=== PATIENT | male | born 1960 ===

== ENCOUNTER 2023-09-30 01:52 | Inpatient (IN) | payer MEDICARE, MEDICAID, SELFPAY ==
[2023-09-30] VITALS (23 sets, daily range): BP systolic 102–135; BP diastolic 59–73; PULSE 62–94; RESP 10–18; TEMP 36.4–37.9; O2SAT 95–100; BMI 20.7
--- NOTE | 2023-09-30 00:52 | W.PC.ACHO ---
Registration Status: Primary Language: Preferred Language: Allergies No Known Allergies Allergy (Unverified 09/30/23 00:23) v v v v v v v v v Sending and/or Receiving Nurses: Please use comment section below to note any information pertinent to the patient hand-off not included above. Information / Comments: Pt arrived to [facility] via private vehicle after falling onto R hip. Pt ambulatory, however c/o pain and some weakness to R side. Pt has a hx of cerebral palsy and developmental delay. Xray showed R femoral neck fracture. Pt is A&O x3, lungs CTAB, HRR, has been NPO since midnight. VSS: Temp- 36.9, BP- 151/83, HR- 85, R- 18, SpO2- 95% on RA. Pt will be a direct admit to the floor via ambulance transportation from [facility]. Report received from: [facility] ED
[2023-09-30] MEDS: Normal Saline 1,000 ML 80 ML IV (03:02)
[2023-09-30] MEDS: ACETAMINOPHEN 1,000 MG/100 ML BTL 400 MG IVPB (03:03)
[2023-09-30] MEDS: Levothyroxine 50 MCG TAB PO (06:03)
[2023-09-30 06:47] LABS: HCT 39.7 % (40.0-50.0); HGB 13.4 g/dL (13.5-17.5); MCH 32.3 pg (27.0-33.0); MCHC 33.8 % (32.0-36.0); MCV 96 fL (80-95); MPV 10.4 fL (8.0-11.0); Platelet Count 169 10^3/uL (130-400); RBC 4.15 10^6/uL (4.36-5.78); RDW 12.7 % (11.8-14.1); RDW-SD 44.5 fL; WBC 10.24 10^3/uL (4.4-10.8)
[2023-09-30 07:11] LABS: Anion Gap 8.3 mmol/L (3-11); BUN 15 mg/dL (7-18); CO2 27.7 mmol/L (21.0-32.0); Calcium 8.4 mg/dL (8.5-10.1); Chloride 104 mmol/L (98-107); Estimated GFR 85.63 (mL/min/1.73m2); Glucose 99 mg/dL (74-106); Potassium 3.7 mmol/L (3.5-5.1); Sodium 140 mmol/L (136-145); TSH (W/Ref FT4) 2.59 uIU/mL (0.36-3.74)
--- NOTE | 2023-09-30 07:42 | W.ORTHOCONSU ---
History of Present Illness History of Present Illness Chief Complaint: Right Hip Pain Narrative: Philip is a 62-year-old male with cerebral palsy who was at home and was trying to go up stairs when he tripped and fell onto his right side. He was helped up by his caregiver, Shey, but she noticed that he seemed to be having more pain. He was able to place weight onto the right leg although he seemed to be favoring it and was more unsteady than he was prior to the fall. Therefore, EMS was called he was taken to [facility]. There he was diagnosed with a transcervical femoral neck fracture. CT scan was performed to the hospital which showed a primary transverse fracture with a vertical extension anteriorly. There is no orthopedic coverage. I was called in consultation for [facility] where I recommended surgery for this fracture and accept him in transfer. Philip is largely nonverbal. He uses some hand gestures for communication but for the most part the history was obtained through his caregiver, Shey, who is present in the room and through his brother, Edu, who I called. Prior to this fall he had been having some issues with gait although this has been a longstanding problem, slightly getting worse. He has been reluctant to do exercises and physical therapy has been in the home which has been helping out. He also is been having some generalized and slow weight loss. This has been evaluated at this point he is just chopping the food in small pieces and is otherwise been doing well although still with some stable and slow weight loss. He does not like to do exercise and does not walk for exercise but he does work at [employer] and enjoys doing those activities. He is only identified the right hip as a point of pain. There is no head trauma. There is no loss of consciousness. Consults Consult date: 09/30/23 Consult Reason Right Hip Fracture Assessment and Plan Assessment and plan (1) Fracture of femoral neck, right, closed: Status: Acute Assessment and plan: Philip is a 62-year-old male with cerebral palsy and development delay who suffered a fracture to his right hip. This is a mechanical fall. This is a mildly impacted fracture with a vertical spike of the anterior femoral neck. This is a very challenging situation. Given his cerebral palsy and his neuromuscular disorder and frequent falls and some ataxia, there is some difficulty in knowing what the best next step would be. Given the underlying medical history I would err towards the side of fixation rather than replacement. I discussed the case with Shey's caregiver and his brother, Edu. Both situations have different risk. Fixation with screws would be a quicker procedure with less blood loss and less anesthetic risk. It may take longer to obtain pain-free ambulation but he would be able to weight-bear right away. The benefit of the hip replacement would be general less pain with weightbearing right from the beginning. However, with hip replacement there is added risk of dislocation which would be not insignificant for him, particular with his neuromuscular disorder and seizure history and history of falls. Nevertheless, fixation with screws does carry a 25% rate or so of failure either from osteonecrosis, blood flow being disrupted from the fracture, or hardware failure leading to malunion or nonunion. Occasionally hardware prominence may be an issue as well. After discussing this with Shey and Edu they both agree that fixation seems to be the best option. I reviewed screw fixation of the right hip fracture with Edu over the phone. I discussed the technical details. I discussed the risk to include bleeding, infection, pain, stiffness, damage to nerves and vessels, damage to muscles and tendons, malunion, nonunion, hardware prominence, hardware failure, osteonecrosis, blood clot, need for repeat procedures. Despite these risk, he elects to proceed. (2) Seizure disorder: Status: Chronic Assessment and plan: Stable without recent seizure. Continue home medications. (3) Cerebral palsy: Status: Acute Assessment and plan: Actively seeing physical therapy. Review of Systems All systems reviewed & are unremarkable except as noted in HPI and below PFSH All Active Problems (Updated 09/30/23 @ 07:58 by James Murrell MD) Cerebral palsy (Acute) Seizure disorder (Chronic) Fracture of femoral neck, right, closed (Acute) Social History Smoking/Tobacco Use Status: Never Smoking risk assessment performed?: Yes Alcohol Intake: never Substance use type: does not use Housing: other Exam Const General: cooperative, comfortable and no acute distress HENMT Head: normal to inspection, normocephalic and atraumatic Teeth and gingiva: abnormal dentition Neck Neck: normal visual inspection and full ROM Resp Effort & Inspection: normal respiratory effort Auscultation: clear to auscultation bilaterally Cardio Rate: regular rate Rhythm: regular rhythm Extrem Other: Right lower extremity is position similar to the left side. No significant shortening or external rotation appreciated. There is notable equinus posturing of the bilateral lower extremities. He has active clonus bilaterally. Passively I can bring his ankle to neutral. Has no pain with palpation about the distal thigh, knee, leg, ankle, or foot. He is otherwise unable to participate with neuromuscular testing. Palpable DP and PT pulses. Results Last Vital Signs Temp 37.4 C 09/30/23 06:20 Pulse 85 09/30/23 06:20 Resp 14 09/30/23 06:20 BP 105/60 09/30/23 06:20 Pulse Ox 97 09/30/23 06:20 Labs 09/30/23 06:10 09/30/23 06:10 Labs: Laboratory Results - last 24 hr 09/30/23 06:10 WBC 10.24 RBC 4.15 L Hgb 13.4 L Hct 39.7 L MCV 96 H MCH 32.3 MCHC 33.8 RDW 12.7 Plt Count 169 MPV 10.4 Sodium 140 Potassium 3.7 Chloride 104 Carbon Dioxide 27.7 Anion Gap 8.3 BUN 15 Creatinine 1.0 Est GFR (CKD-EPI 2020) 85.63 Glucose 99 Calcium 8.4 L TSH 2.59 Imaging Imaging Studies: X-ray of the right hip and pelvis from [facility] was reviewed. This shows what appears to be transcervical femoral neck fracture without any displacement. CT scan of the right hip from [facility] was also reviewed. This shows the aforementioned fracture. Interestingly, there is some impaction and maybe some mild posterior angulation of a few degrees at most. There is a vertical fragment going off the anterior femoral neck which is also nondisplaced.
[2023-09-30] MEDS: Cholecalciferol (Vitamin D3) 1,000 UNIT TAB 1000 UNITS PO (07:52)
--- NOTE | 2023-09-30 08:04 | ANES.PREOP_ITS ---
General Info Date of Service Date Performed: 09/30/23 Height: 5 ft 5 in Weight: 56.518 kg Body Mass Index (BMI): 20.7 Surgical Procedure: Operation Date: 09/30/23 08:30 Proposed Procedure Side Surgeon p cannulated hip screws Right James Murrell MD Meds Allergies and Home Medications Allergies Allergy/AdvReac Type Severity Reaction Status Date / Time No Known Allergies Allergy Unverified 09/30/23 00:23 Home Medication ?Medication ?Instructions ?Recorded cholecalciferol (vitamin D3) 25 25 mcg PO DAILY 09/30/23 mcg (1,000 unit) capsule docusate sodium 100 mg capsule 100 mg PO DAILY PRN constipation 09/30/23 ipratropium bromide 42 mcg (0.06 2 spray intranasal TID 09/30/23 %) nasal spray levothyroxine 50 mcg tablet 50 mcg PO DAILY 09/30/23 minocycline 50 mg capsule 50 mg PO DAILY 09/30/23 phenytoin sodium extended 100 mg 100 mg PO TID 09/30/23 capsule primidone 250 mg tablet 250 mg PO BID 09/30/23 triamcinolone acetonide 0.025 % 1 applic topical BID 09/30/23 topical cream Current Visit Medications: Current Medications Generic Name Dose Route Start Last Admin Trade Name Freq PRN Reason Stop Dose Admin Cholecalciferol 1,000 units 09/30/23 08:30 09/30/23 07:52 Cholecalciferol (Vitamin D3) 1,000 Unit Tab PO 1,000 units DAILY TRACE Administration Docusate Sodium 100 mg 09/30/23 01:55 Docusate Sodium 100 Mg Cap PO DAILY PRN constipation Hydromorphone HCl 0.5 mg 09/30/23 01:52 Hydromorphone 2 Mg/Ml Syr IVP Q2H PRN PRN Acetaminophen 1,000 mg in 100 mls @ 400 mls/hr 09/30/23 03:00 09/30/23 03:30 Ofirmev IVPB Infused Q8H TRACE Infusion Sodium Chloride 1,000 mls @ 80 mls/hr 09/30/23 03:00 09/30/23 03:02 Saline 1000ml Bag IV 80 mls/hr INFUSION TRACE Administration IV Miscellaneous Supplies 1 each 09/30/23 02:00 Iv Access IV DIRECTED TRACE Ketorolac Tromethamine 15 mg 09/30/23 01:56 Ketorolac 15 Mg/Ml Vial IVP 10/05/23 01:55 Q6H PRN PRN Levothyroxine Sodium 50 mcg 09/30/23 06:00 09/30/23 06:03 Levothyroxine 50 Mcg Tab PO 50 mcg 0600 TRACE Administration Non-Formulary Medication 50 mg 09/30/23 08:30 Minocycline PO DAILY TRACE Ondansetron HCl 4 mg 09/30/23 01:52 Ondansetron 4 Mg/2 Ml Vial IVP Q6H PRN PRN Nausea Phenytoin Sodium 100 mg 09/30/23 08:30 09/30/23 07:52 Phenytoin-Extended 100 Mg Cap PO 100 mg TID TRACE Administration Primidone 250 mg 09/30/23 08:30 Primidone 250 Mg Tab PO BID TRACE Sodium Chloride 0 ml 09/30/23 01:58 Normal Saline Flush 10 Ml Syr IVP PRN PRN Sodium Chloride 0 ml 09/30/23 08:30 Normal Saline Flush 10 Ml Syr IVP BID TRACE Sodium Chloride 0 ml 09/30/23 01:58 Normal Saline 10 Ml Vial IJ DIRECTED PRN Tramadol HCl 50 mg 09/30/23 01:52 Tramadol 50 Mg Tab PO Q4H PRN PRN Pain PFSH Active Problems Active Problems: Problem Status Onset Code Cerebral palsy Acute G80.9 Seizure disorder Chronic G40.909 Fracture of femoral neck, right, closed Acute S72.001A Tobacco Smoking/Tobacco Use Status: Never Alcohol Alcohol Intake: never Substance Use Substance use type: does not use Vital Signs and Lab Results Vital Signs Most Recent Vital Signs in EMR: Most Recent Vital Signs Temp Pulse Resp BP Pulse Ox 37 C 88 14 115/65 96 09/30/23 07:46 09/30/23 07:46 09/30/23 07:46 09/30/23 07:46 09/30/23 07:46 Lab Results 09/30/23 06:10 09/30/23 06:10 Blood Type / Crossmatch: 2 No Data to Display Complete Blood Count: 2 White Blood Count 10.24 10^3/uL (4.4-10.8) 09/30/23 06:10 Red Blood Count 4.15 10^6/uL (4.36-5.78) L 09/30/23 06:10 Hemoglobin 13.4 g/dL (13.5-17.5) L 09/30/23 06:10 Hematocrit 39.7 % (40.0-50.0) L 09/30/23 06:10 Platelet Count 169 10^3/uL (130-400) 09/30/23 06:10 Complete Metabolic Panel: 2 Sodium 140 mmol/L (136-145) 09/30/23 06:10 Potassium 3.7 mmol/L (3.5-5.1) 09/30/23 06:10 Chloride 104 mmol/L (98-107) 09/30/23 06:10 Carbon Dioxide 27.7 mmol/L (21.0-32.0) 09/30/23 06:10 BUN 15 mg/dL (7-18) 09/30/23 06:10 Creatinine 1.0 mg/dL (0.70-1.30) 09/30/23 06:10 Est GFR (CKD-EPI 2020) 85.63 (mL/min/1.73m2) 09/30/23 06:10 Calcium 8.4 mg/dL (8.5-10.1) L 09/30/23 06:10 Glucose 99 mg/dL (74-106) 09/30/23 06:10 Liver Function Panel: 2 No Data to Display Coagulation Panel: 2 No Data to Display Cardiac Panel: 2 No Data to Display Arterial Blood Gas: 2 No Data to Display Venous Blood Gas: 2 No Data to Display Pancreas Panel: 2 No Data to Display Thyroid Panel: 2 Thyroid Stimulating Hormone (TSH) 2.59 uIU/mL (0.36-3.74) 09/29 06:10 Infectious Disease: 2 No Data to Display Blood Cultures: 2 No Data to Display Toxicology Panel: 2 No Data to Display Anesthesia Assessment and Plan Anesthesia History Personal History: No History of Anesthesia Complications Family History: No Family History of Anesthesia Complications Exercise Tolerance Exercise Tolerance: Metabolic Equivalents>4 Pertinent Negatives Pertinent Negatives: No Symptoms of GERD Cardiac & Pulmonary Exam Cardiac Exam: Normal S1/S2 Heart Sounds Pulmonary Exam: Clear Bilateral Breath Sounds Implantable Cardiac Device Does patient have a Pacemaker or an ICD?: No Airway Exam Known Difficult Airway: No Mallampati Class: 3 Mouth Opening: Narrow (< 3cm) Thyromental Distance: Less than 3 cm Neck Range of Motion: Limited ROM Neck Circumference: Normal Teeth Condition: Generalized Poor Dentition and Dental Caries ASA Classification ASA Score: ASA 3 Emergency Case?: No NPO Status NPO Status: NPO Clears >2 hours, Solids >8 hours Anesthesia Plan Resuscitation Status: Full Code Anesthesia Technique: General Anesthesia Airway Planned: Endotracheal Tube Monitors Used: Standard Monitors Preoperative Comments:: Per brother last seizure at 26. Stable dose Phenytoin. Caregiver witnessed fall, not a seizure.
--- NOTE | 2023-09-30 08:26 | INITIAL_ITS ---
Date of service: 09/30/23 Time of Service: 08:26 Care Management Initial Assmt Initial Assessment Reason for Hospitalization: R femoral neck fracture Functional Status/Living Situation Patient Presentation: Jermaine was sitting up in bed when CM met with him. He was smiling and answered simple questions with yes or no responses but did not initiate any conversation. Philip was transferred to [facility] from [facility] with a fractured femur. He had surgical repair of his hip this morning and seems to be doing well. He denied pain at the time of CM visit. Philip has cerebral palsy and has a caregiver Shey. He also has a brother Edu who is his guardian. When Edu came to visit this afternoon CM met with him and Philip. He was able to provide more details about Philip's current living conditions and his needs, services and functioning. Philip is fairly independent with his personal care. He bathes, dresses and feeds himself. He ambulates independently and does not require the use of a cane, walker or wheelchair. Philip spends Sunday through Sunday at his caregiver's home and s at home with Edu. He has received home health PT services in the past but not currently. 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, Groceries, Laundry and Transportation Medications Medication Management: No Issues/Barriers identified Advance Directives Advance Directives: Do you have an Advance Directive: AD On File at [facility]: N 09/30/23 08:14 Date Asked 09/30/23 09/30/23 08:14 AD Date Reviewed COLST On File at [facility] COLST Date Scanned Code Status Resuscitation Status Full Code Portal Pt does not currently have a portal and education provided: No Insurance Coverage/Financial Issues Insurance: Medicare Medicaid Care Team Visit Care Team Role Provider Type Unknown Unknown Primary Care Provider STAFF PHYSICIAN James Murrell MD Admit Provider [facility] STAFF PHYSICIAN Attending Provider Discharge Potential Discharge Needs: PCP F/U Appt and Surgical F/U Appt Anticipated Barriers to Discharge: Medical Status Patient/Family Education Needs: Review discharge instructions, discuss Ask Me Three Transportation: Private vehicle Plan: Anticipate Philip will be discharged home, possibly with new home health services, when medically ready. He will follow up with his surgeon, PCP and plan of care a nd transport with his caregiver. CM will follow and continue to assess for discharge needs. SDOH(Care Management) Screening Will the Patient Participate in the Screening?: Unable to obtain PFSH All Active Problems Cerebral palsy (Acute) Fracture of femoral neck, right, closed (Acute) Medical History Seizure disorder Social History Smoking/Tobacco Use Status: Never Smoking risk assessment performed?: Yes Alcohol Intake: never Substance use type: does not use Housing: other
[2023-09-30] MEDS: Lactated Ringers 1,000 ML 30 ML IV (08:40)
[2023-09-30] MEDS: ceFAZolin 2 GM/50 ML BAG 50 GM (08:49)
--- NOTE | 2023-09-30 09:26 | DI.RAD_ITS ---
Exam(s) XR HIP RT IN OR EXAM: XR HIP RT IN OR CLINICAL HISTORY: Right hip FX- per [place]. TECHNIQUE: 2D and realtime digital imaging was performed. COMPARISON: No exams were available for comparison FINDINGS: Hard copy images show placement of 3 partially threaded screws in the proximal femur for fracture fix ation. Please see procedure note for details. Fluoro time: 52.3seconds RADIATION DOSE DELIVERED: Kar=4.2 mGy
--- NOTE | 2023-09-30 09:59 | W.PM.OP ---
Date of service: 09/30/23 Time of Service: 09:00 Operative Note Operative Note DATE OF PROCEDURE: 09/30/23 PRE-OP DIAGNOSIS: Right Femoral Neck Femur Fracture POST-OP DIAGNOSIS: same PROCEDURE: Cannulated Screw Fixation of Proximal Femur Fracture - RIGHT SURGEON: James Murrell ANESTHESIA TYPE: General LMA/ETT Refer to Anesthesia Record ESTIMATED BLOOD LOSS: 10 PATHOLOGY: none sent COMPLICATIONS: None Patient was transported to: PACU Patient's condition: stable Implants: Synthes 7.3mm cannulated screws (x3) Indications: Philip is a 62 year old male who presented to the Emergency Department at [facility] after a fall. X-rays confirmed the diagnosis of a femoral neck fracture of the proximal femur without significant displacement or comminution. I reviewed the possible treatment options and given the fracture of the femur which was nondisplaced and his underlying seizure and neuromuscular disorder, I recommended operative fixation. I discussed the technical details of the surgery with his caregiver and his brother, power of trademark attorney. I reviewed the risks such as bleeding, infection, pain, stiffness, malunion, nonunion, hardware prominence, hardware failure, malrotation, avascular necrosis, blood clot. Despite these risks, his brother and power of trademark attorney agreed to proceed. Findings: A femoral neck fracture was confirmed to be stable and thus secured with 3 7.3mm cannulated screws in a percutaneous fashion. Procedure Description: Philip was taken back to the operating room. A general anesthetic was administered. The feet were wrapped with cast padding and Coban and then placed into the boot liners and then into the boots. Care was taken to protect the skin and make sure the heels were fully down and the boots were stable. The patient was then positioned onto the HANA table. Both legs were held in a neutral position. SCDs were applied. The patient was then slid down onto a perineal post. The arm of the operative side was then placed across the chest and secured. The nonoperative leg was scissored. A gentle reduction was then performed with traction and internal rotation and gentle external manipulation. Prophylactic antibiotics in the form of Cefazolin were administered. The right leg was then prepped with Chloraprep and draped in a standard fashion with shower-curtain type drape with Iodine impregnated skin protection. A timeout to confirm correct identity, side and site, procedure, allergies, anesthesia, and medical concerns was performed. Using fluoroscopy, the starting point was marked over the lateral hip. The first pin was placed into a posterior?inferior position to form an inverted triangle. This was made sure to start proximal of the lesser trochanter. It was advanced into the femoral head and confirmed to be in a good position both on the AP and the lateral. 2 additional pins from the 7.3 mm cannulated system replaced, both superior, 1 anterior 1 posterior. These were once again confirmed to be in good position on fluoroscopy. They were advanced to the appropriate position in the path of the pin was cut with a knife. The pin length was measured and the lateral cortex was opened with a drill. The appropriate sized screws were then placed loosely. Once all 3 were in position I then proceeded circumferentially tightening each screw by 1 or 2 turns into each were tightened. These had excellent fixation. There is no screw penetration in the head and no penetration within the lateral cortex. AP and lateral x-rays were once again obtained to confirm appropriate positioning throughout both planes and without displacement nor fracture propagation. The wounds were thoroughly irrigated. A cocktail consisting of 123mg of Ropivacaine, 0.25mg of Epinephrine, 0.04mg of Clonidine, and 15mg of Ketorolac, diluted to 50cc was injected throughout the wounds both deep and superficially. The skin was closed with a running subcuticular Monocryl reinforced with skin glue. The wounds were dressed with a Mepilex silver dressing. At the end of the case, all counts were correct. Philip tolerated the procedure well without known complication and was taken to the PACU for recovery. Physical therapy will start post-operatively, weigh-bearing as tolerated with assistive devices. Anticoagulation will start within 12-24 hours. 3 doses of post-operative antibitiocs for prophylaxis will be administered.
--- NOTE | 2023-09-30 11:45 | PT.INIE ---
Date of service: 09/30/23 Time of Service: 11:20 PT Notes Visit Reasons: R Femoral Neck Fracture Inpatient Physical Therapy Evaluation Date: September 30, 2023 Referring Doctor: James Murrell PT Orders: PT CONSULT: s/p perc screw fixation of R FNF WBAT Precautions: Standard, WBAT R LE Patient Profile/Admitting Diagnosis: Philip is a 62-year-old male with cerebral palsy who was at home and was trying to go up stairs when he tripped and fell onto his right side. He was helped up by his caregiver, Shey, but she noticed that he seemed to be having more pain. He was able to place weight onto the right leg although he seemed to be favoring it and was more unsteady than he was prior to the fall. Brought to the ED. s/p perc screw fixation this morning via Dr Murrell PMHX: (Updated 09/30/23 @ 07:58 by James Murrell MD) Cerebral palsy (Acute) Seizure disorder (Chronic) Fracture of femoral neck, right, closed (Acute) Social History/Home Situation: Philip lives with his caregiver Shey currently during the week and on weekends stays with his brother Tan. Tan was present during PT consult this morning and provided all subjective info for Philip is nonverbal. Current Functional Limitations: decreased activity tolerance, Tan notes his brother would prefer to just sit in his chair and watch TV. Does complete daily exercises that were provided via Home Health due to problems with his gait. Tan states his brother is a toe walker. Does not utilize an assistive device however does not walk without either him or his caregiver Shey. Subjective: Philip was agreeable to PT consult this morning with head nod and smile. Brother aTn in attendance for evaluation. Notes that Philip walks with him and his caregiver however has never utilized an assistive device before. Objective: General Observation: IV access Mental Status: pleasant, nonverbal, will head nod upon agree, and follows command Pain: No complaints of pain Vital Signs: monitored via nursing ROM: Right Upper Extremity: Demonstrates WFL AROM R UE Left Upper Extremity: Demonstrates WFL AROM L UE Right Lower Extremity: hip flexion 90 degrees in seated position bedside, abduction tolerated 20 degrees, knee flexion 90 degrees, lacking 10 degrees of knee extension, lacking 5 degrees of DF Left Lower Extremity: hip flexion 90 degrees, abduction 20 degrees, knee flexion 90 degrees, knee extension lacking 20 degrees, DF lacking 15 degrees Strength: Right Upper Extremity: Demonstrates good gravity resisted strength R UE Left Upper Extremity: Demonstrates good gravity resisted strength L UE Right Lower Extremity: hip flexion 3/5, knee extension 4/5, knee flexion 4-/5, DF 4/5 Left Lower Extremity: hip flexion 4/5, knee extension 4/5, knee flexion 4/5, DF 3/5 Bed Mobility/Transfers: Supine-sit: SBA Sit-supine: SBA Sit-stand: SBA with FWW instructing in proper hand placement Stand-sit: SBA with cueing for proper hand placement Gait: WBAT R LE, able to take 5 steps with FWW, minAx1 Balance: Static Sitting: Good Dynamic Sitting: Good Static Standing: Fair Dynamic Standing: Poor Special Tests: Mobility Limitations Standardized Measure [facility] AM-PAC 6 clicks Basic Mobility Inpatient Short Form: Raw Score: 19 CMS Score: 42% Informed Consent/Education: Patient instructed in purpose of PT consult and plan of care. Assessment: Patient is a 62 year old male referred to physical therapy services with the diagnosis of femoral neck fracture s/p perc screw fixation of the R FNF s/p fall. Patient presents with clinical signs and symptoms consistent with diagnosis along with CP, as demonstrated by the following impairment level findings: impaired joint mobility, impaired muscle performance, impaired motor function with altered gait and balance. Impairments are contributing to the following functional limitations: decreased activity tolerance, WBAT R LE, decreased balance, altered gait- requiring use of assistive device, decreased transfers Patient is assessed as a Low 77836 complexity based on the following: History: As above Examination: As above Presentation: Stable Decision Making: Low Goals: Goals X1 week 1. Supine-Sit independent 2. Sit-Supine independent 3. Sit-Stand SBA 4. Stand-Sit SBA 5. Bed-Chair SBA with FWW 6. Chair-Bed SBA with FWW 7. Gait SBA with FWW 8. Stairs up/down CGA with railing 9. Independent with home exercise program Plan of Care/Treatment Plan: 1-2x/day, 7 days/week x 1 week. Plan of care has been reviewed with the FAMILY ENGAGEMENT SPECIALIST providing the service under Physical Therapy direction. Initiate Physical Therapy intervention for strengthening, bed mobility, transfers, gait, stairs, balance training, use of assistive device. DISCHARGE RECOMMENDATIONS: Home with Home Health PT/OT in care of brother and caregiver Shey TREATMENT CODE/TIME: 64848 IE 25 minutes 11:20 am [facility] Please sign an return this page within 30 days if you agree with the above POC. Thank you! Physician Signature Date [facility] Disclaimer: This note was created using Ready voice recognition software. It was reviewed for major content. However, there may be multiple small discrepancies and errors due to the voice recognition aspects of the software.
--- NOTE | 2023-09-30 12:13 | W.ANESPOSTOP ---
Postoperative Evaluation Date, Time and Location Date Performed: 09/30/23 Time Performed: 10:02 Patient Location: PACU Vital Signs Most Recent Imported Vital Signs: Most Recent Vital Signs Temp Pulse Resp BP Pulse Ox 37.5 C 76 14 119/71 99 09/30/23 11:24 09/30/23 11:24 09/30/23 11:24 09/30/23 11:24 09/30/23 11:24 Pain Score Most Recent Pain Score: Most Recent Pain Score Pain Level 0 09/30/23 10:13 Assessment Mental Status: Awake (Alert & Oriented to Patient Baseline) Airway and Respiratory Function: Patent airway with normal (patient baseline) respiratory exam Cardiovascular Function: Hemodynamically Stable Hydration Status: Adequately Hydrated Nausea & Vomiting: No Nausea or Vomiting Pain: Pt. Denies Any Pain Peripheral Nerve Block: Patient did not receive a nerve block
[2023-09-30] MEDS: ceFAZolin 1 GM/50 ML BAG IVPB ×2 (12:44→21:04)
[2023-09-30] MEDS: Normal Saline Flush 10 ML SYR IVP ×2 (12:46→21:13)
[2023-09-30] MEDS: Acetaminophen 325 MG TAB 650 MG PO ×2 (14:17→19:28)
[2023-09-30] MEDS: Primidone 250 MG TAB PO (19:29)
[2023-09-30] MEDS: Aspirin E.C. 81 MG TABEC PO (19:29)
[2023-10-01 04:34] VITALS: BP 115/75; PULSE 84; RESP 15; TEMP 37.3; O2SAT 99
[2023-10-01] MEDS: ceFAZolin 1 GM/50 ML BAG IVPB (04:54)
[2023-10-01] MEDS: Levothyroxine 50 MCG TAB PO (04:55)
[2023-10-01 07:37] VITALS: BP 126/67; PULSE 85; RESP 18; TEMP 37.5; O2SAT 97
[2023-10-01] MEDS: Primidone 250 MG TAB PO ×2 (07:45→20:14)
[2023-10-01] MEDS: Aspirin E.C. 81 MG TABEC PO ×2 (07:45→20:14)
[2023-10-01] MEDS: Normal Saline Flush 10 ML SYR IVP ×2 (07:46→20:15)
[2023-10-01] MEDS: Cholecalciferol (Vitamin D3) 1,000 UNIT TAB 1000 UNITS PO (07:46)
[2023-10-01] MEDS: Acetaminophen 325 MG TAB 650 MG PO ×3 (07:46→20:14)
--- NOTE | 2023-10-01 08:40 | PDOC.CMPRO ---
Date of service: 10/01/23 Time of Service: 08:40 Care Management Progress Note Progress Note Text Progress Note Text: Jermaine was sitting in a chair visiting with his Guardian/brother Edu and homecare provider Shey when CM met with him. He appears happy and is smiling. Recommendation is home with [facility] PT, possibly tomorrow per Dr. Murrell. Patient may benefit from an OT referral, for a home safety assessment as Shey feels he may need handrails. Discharge Potential Discharge Needs: PT Evaluation (New PT ) Anticipated Barriers to Discharge: None Identified Patient/Family Education Needs: Review discharge instructions, discuss Ask Me Three Transportation: Private vehicle Plan: Anticipate, Philip will be discharged home, possibly with [facility] PT/OT,, when medically ready. He will follow up with his Ortho, PCP and plan of care and transport with his caregiver. CM will follow and continue to assess for discharge needs. CM reviewed with Shey and Edu. SDOH(Care Management) Screening Will the Patient Participate in the Screening?: Unable to obtain Anticipated HH Services Anticipated HH Services at Discharge [facility] ([facility] PT/OT) Services Needed.
--- NOTE | 2023-10-01 11:01 | PTTR_ITS ---
PT Notes Visit Reasons: R Femoral Neck Fracture Inpatient Physical Therapy Treatment Note [facility] Date: October 01, 2023 PRECAUTIONS: Weightbearing as tolerated right lower extremity SUBJECTIVE: [] OBJECTIVE: Patient presented supine in bed. Patient agreeable to participate ? PAIN: Denies VITALS: ?Monitored by nursing Therapeutic Activities (56725x0): Direct one-on-one instruction in dynamic activities to improve functional performance. ? BED MOBILITY/TRANSFERS? Rolling L/R: Independent Supine-sit: SBA? Sit-supine: SBA with increased time for lower extremities into bed ? Sit-stand: SBA with cues for hand placement? Stand-sit: CGA with cues for hand placement? Bed-Chair: CGA? Chair-bed: CGA Provided skilled cues and instruction on performance and technique throughout. Gait Training (05511 x 2): Direct one-on-one instruction and skilled instruction in: [X] employing an assistive device [X] modified weight-bearing status [x] movement sequencing [X] turning and movement with proper form to lift and turn front wheel walker without moving feet at the same time [X] Provided verbal cues for equipment management and technique in small spaces [] Provided instruction in gait pattern [] Patient education regarding pacing and breathing techniques to maximize activity tolerance? GAIT? Assistive Device: FWW ? Weight bearing:WBAT RLE Assist: CGA cues to go slow ? Distance:? 122 feet x1, 100x1 ? x 2 trials for a total of 444 feet? Deviation: ataxic on initiating steps ? STAIRS:CGA 2 steps with B rails step to pattern cues for sequencing? ?x 2 trials ? Therapeutic Exercises (11724z7): Direct one-on-one instruction in therapeutic e xercises to develop strength, endurance, range of motion and flexibility. ? Exercises 10 reps ? Supine right lower extremity: Heel slides, quad sets,glutes sets, active assistive hip abduction Seated RLE: Marching, LAQ ? Provided skilled instruction in proper exercise performance Provided skilled manual cues to facilitate proper muscle recruitment and/or form: [] ASSESSMENT:?Pt patient demonstrates impulsivity and and easily distractible during functional mobility in hallway. He utilizes gestures and is able to answer yes/no questions appropriately. The FWW provides upper extremity support to improve posture. During second session caregiver Shey, present and reports he is walking more upright than prior to injury as patient did not use a device at home. Philip demonstrates intermittent left lower extremity ataxic crossover step with internal rotation requiring contact-guard assist to steady balance. Recommending front wheel walker for discharge to home. Shey verbalized ability to provide current level of assistance needed if Philip was to return to her home however Shey reports the patient will be going to his brother's home for a few days prior to returning to her home. At end of session the patient's brother Tan entered room his questions were answered regarding the patient's current functional status and need for front wheel walker and recommendation for safety belt/gait belt at discharge to allow Tan to have something to hold onto when walking with patient. PLAN: Continued strengthening BLE , balance facilitation to improve transfers ambulation and stairs TREATMENT CODE/TIME: 1st session [id number], [id number] (33 minutes) 2nd session: 03667; [id number] (30 min) DISCHARGE RECOMMENDATION: Home with brother and caregiver and PT; FWW and gait/safety belt.
[2023-10-01 11:17] VITALS: BP 127/77; PULSE 87; RESP 18; TEMP 37.2; O2SAT 99
--- NOTE | 2023-10-01 13:02 | PGE_ITS ---
Date of Service Date of service: 10/01/23 Time of Service: 12:15 Assessment and Plan Assessment and plan (1) Fracture of femoral neck, right, closed: Status: Acute Assessment and plan: Philip is a 62-year-old male with cerebral palsy and developmental delays and seizure disorder who is status post percutaneous screw fixation of a right femoral neck fracture. He seems to be doing well. He is been able to mobilize physical therapy with nursing. I do worry about his fall risk given that he has balance issues at baseline. Nevertheless, he is making good progress and I thin k he should be ready for discharge to home tomorrow with home health services. Continue with supportive care. Subjective Subjective Interval history since last seen: Philip is doing well. He is nonverbal but does smile and nod with questions. He denies any pain. He was able to get up with nursing and with physical therapy. He was minimal assist x 1. No other acute issues identified. Vital signs are stable. Exam Narrative Exam Narrative: Sitting up in the chair. No acute distress. Evaluation of the right lower extremity shows some mild swelling. Dressings clean dry and intact. No ec chymosis. No significant pain with hip internal and external rotation. Objective Last Vital Signs Temp 37.2 C 10/01/23 11:17 Pulse 87 10/01/23 11:17 Resp 18 10/01/23 11:17 BP 127/77 10/01/23 11:17 Pulse Ox 99 10/01/23 11:17 Time Spent with Patient Time Spent with Patient: 25-34 minutes Time was spent: preparing to see the patient(eg.review tests), obtaining and/or reviewing separately otained hiistory and counseling the patient
[2023-10-01 14:47] VITALS: BP 137/75; PULSE 87; RESP 18; TEMP 37.1; O2SAT 100
[2023-10-01 19:14] VITALS: BP 137/74; PULSE 84; RESP 18; TEMP 36.9; O2SAT 100
[2023-10-01 23:36] VITALS: BP 116/86; PULSE 77; RESP 19; TEMP 37; O2SAT 99
[2023-10-02 03:31] VITALS: BP 116/67; PULSE 80; RESP 18; TEMP 37; O2SAT 99
[2023-10-02] MEDS: Levothyroxine 50 MCG TAB PO (05:46)
--- NOTE | 2023-10-02 07:19 | W.PM.DS.N ---
Date of service: 10/02/23 Time of Service: 07:19 DS: Diagnosis Discharge Diagnosis (1) Fracture of femoral neck, right, closed: Status: Acute Discharge Plan Disposition Patient Disposition: Home W/Home Health Services Condition: Improving Discharge Details Reason For Visit: R Femoral Neck Fracture Admit Date/Time: 09/30/23 01:52 Admit Provider: James Murrell Attending Provider: James Murrell Primary Care Provider: Unknown,Unknown Hospital Course Hospital Course: Philip was transferred from [facility] for the management of a right transcervical femoral neck fracture, nondisplaced. I recommended proceeding with screw fixation. He had this performed on hospital day #2. The surgery was tolerated well without any notable medical, surgical, or anesthetic complications. Mobilization began postoperatively. He was voiding spontaneously. Vitals were stable. Physical therapy worked with the patient and was cleared for discharge home with home health services. No acute medical issues. Pain was controlled on oral regimen. Home Meds and New Rx's Prescriptions: New acetaminophen 500 mg tablet 500 mg PO Q6H PRN PRN (Reason: pain) Qty: 60 3RF ibuprofen 600 mg tablet 600 mg PO TID PRN (Reason: pain) Qty: 30 3RF aspirin 81 mg tablet,delayed release (DR/EC) 81 mg PO BID Qty: 60 0RF Continued cholecalciferol (vitamin D3) 25 mcg (1,000 unit) capsule 25 mcg PO DAILY docusate sodium 100 mg capsule 100 mg PO DAILY PRN (Reason: constipation) ipratropium bromide 42 mcg (0.06 %) spray,non-aerosol 2 spray intranasal TID Rx Instructions: administer into each nostril levothyroxine 50 mcg tablet 50 mcg PO DAILY minocycline 50 mg capsule 50 mg PO DAILY phenytoin sodium extended 100 mg capsule 100 mg PO TID primidone 250 mg tablet 250 mg PO BID triamcinolone acetonide 0.025 % cream 1 applic topical BID Rx Instructions: for 14 days Discharge Instructions Additional Instructions: Hip Discharge Instructions Activity: The most important activity is to walk. You should try to take short walks a few times a day. You have no restrictions on movement or positioning, but do not try to force what you do. You will find some stiffness and weakness with hip flexion (lifting your knee). Do not try to strengthen this too early, continue to practice walking and stairs and this will come. It will take time for things to fully improve. - Home health physical therapy and Occupational Therapy will be ordered to assist you in returning to home and recovering from your hip fracture and subsequent surgery. Dressing: Keep the surgical dressing in place for at least one week. After the first week it may be removed and replace with light gauze and tape or nothing. It may get wet but avoid soaking the dressing. If it gets wet, just lightly pat dry. It is important to always keep some gauze between skin folds, especially when you are sitting. Spend some time with the wound exposed when you are lying flat as the incision does wrinkle onto itself. Medications: - You should take Tylenol and an anti-inflammatory Ibuprofen as your primary pain control medications if needed. - You will be taking Aspirin 81mg twice a day for DVT prevention for 4 weeks. - If you have constipation you should take Colace or Miralax (both [id number]). It takes most people 3-4 days to have a bowel movement. Follow-up: 4 weeks If you have any acute concerns or questions, please do not hesitate to contact the office at [phone]. You may contact Dr. Murrell with any questions after hours through the hospital at [phone] or on his cell phone at [phone]. 1. Encounter Date and Reason I certify that Jermaine Leal was seen by James Murrell MD on 10/02/23 and that I had a eulf-ci-vrap encounter with this patient that meets the physician face to face encounter requirements. 2. Clinical Findings Supporting Skilled Need and Homebound Status I certify that home health services are medically necessary, include either intermittent [place] [facility] and/or physical/speech therapy, and that this patient is homebound in that absences from the home require considerable and taxing effort and are infrequent or of short duration, or are attributable to the need to receive medical care. [X] (a) Attached documentation from encounter provides clinical findings supporting skilled need and homebound status (including what assistance patient requires to leave the home). The encounter with the patient was in whole, or in part, for the following medical condition, which is the primary reason for home health care: R Femoral Neck Fracture [facility]: Physical Therapy: Philip would benefit from home health occupational and physical therapy to assist him with returning to home and to improving his functional independence. He has underlying dysfunction from cerebral palsy and seizure disorder. He is weightbearing as tolerated on the right hip following hip fracture surgery although should use an assistive device or have gait monitored for the next 4 to 6 weeks as this heals. Speech Therapy: Homebound: Philip is unable to leave his home unassisted due to cerebral palsy, recent hip fracture with associated weakness and gait dysfunction. 3. Certification and Authentication I certify that I composed the above information based on my clinical judgement relating to this patient's medical condition and, if applicable, clinical findings communicated to me by the NPP or inpatient physician who performed the Home Health Referral. All further orders will be obtained through Dr. Murrell Stand Alone Forms: Nursing Discharge Form Referrals: Jmaes Murrell MD [ [facility] STAFF PHYSICIAN] - (Please call to schedule a follow up, for 4 weeks. ) Activity:: Activity as Tolerated Equipment/Supplies:: Walker Diet:: As Tolerated Discharge Orders Discharge Orders: Discharge Order (Routine); Ordered 10/02/23 Ordered By: James Murrell DS: Summary Time Spent with Patient providing and/or coordinating discharge services: Less than 30 minutes Status at Discharge Functional status at discharge: uses cane/walker Overall status at discharge: patient is progressing back to baseline Mental Status: other (per baseline with developmental delay and speech delay) Speech and Movement: speech and movement normal (as per baseline) Mood: other (per baseline with developmental delay and speech delay) Affect: normal affect Quality:SDOH Health Related Social Needs: No Data to Display Exam Narrative Exam Narrative: Sitting up in the bed watching TV. No acute distress. Alert. Right lower extremity shows a clean dry and intact dressing. Mild swelling. No ecchymosis. No significant pain with hip internal and external rotation. He is able demonstrate some ankle dorsiflexion plantarflexion as well as great toe extension and flexion. Unable to cooperate with sensation exam. Palpable DP and PT pulse. Psych Mental Status: other (per baseline with developmental delay and speech delay) Speech and Movement: speech and movement normal (as per baseline) Mood: other (per baseline with developmental delay and speech delay) Affect: normal affect DS: Data Vitals/I&O Vitals and I&O: Vital Signs Temperature 37 C 10/02/23 03:31 Temperature Source Temporal Artery Scan 10/02/23 03:31 Pulse 80 10/02/23 03:31 Pulse Rhythm Regular 10/02/23 03:35 Pulse 68 09/30/23 10:01 Respiratory Rate 18 10/02/23 03:31 Respiratory Effort Normal, Non-Labored 10/02/23 03:35 Respiratory Depth Normal 10/02/23 03:35 Respiratory Pattern Normal 10/02/23 03:35 Blood Pressure 116/67 10/02/23 03:31 Blood Pressure Mean 78 09/30/23 10:00 Pulse Oximetry 99 10/02/23 03:31 Respiratory End-tidal CO2 39 09/30/23 10:13 Oxygen Delivery Method Room Air 10/02/23 03:31 Oxygen Flow Rate 0 10/02/23 03:31 Pain Level 0 10/02/23 03:31 Comment RN Notified 09/30/23 23:54 Intake & Output 10/01/23 10/01/23 10/02/23 11:59 23:59 11:59 Intake Total 110 / 600 490 / 600 Output Total 650 / 650 200 / 200 Balance 110 / -50 -160 / -50 -200 / -200 Intake: IV 110 / 120 10 / 120 Oral 480 / 480 Output: Urine 650 / 650 200 / 200 Other: Urine Color Yellow Yellow Yellow Urine Appearance Clear Clear Clear Urine Odor Normal Comment dry Voiding Methods Diaper Urinal Urinal Incontinent Diaper Incontinent PFSH All Active Problems Cerebral palsy (Acute) Seizure disorder (Chronic) Fracture of femoral neck, right, closed (Acute) Social History Smoking/Tobacco Use Status: Never Smoking risk assessment performed?: Yes Alcohol Intake: never Substance use type: does not use Housing: other Time Spent with Patient Time Spent with Patient: <45 minutes Time was spent: preparing to see the patient(eg.review tests), obtaining and/or reviewing separately otained hiistory, counseling the patient and care coordination
[2023-10-02 07:35] VITALS: BP 117/70; PULSE 86; RESP 20; TEMP 38; O2SAT 97
[2023-10-02] MEDS: Normal Saline Flush 10 ML SYR IVP (07:37)
[2023-10-02] MEDS: Acetaminophen 325 MG TAB 650 MG PO (07:38)
[2023-10-02] MEDS: Aspirin E.C. 81 MG TABEC PO (07:38)
[2023-10-02] MEDS: Primidone 250 MG TAB PO (07:38)
[2023-10-02] MEDS: Cholecalciferol (Vitamin D3) 1,000 UNIT TAB 1000 UNITS PO (07:39)
[2023-10-02 08:31] VITALS: TEMP 36.9
--- NOTE | 2023-10-02 10:00 | PT.INDS ---
PT Notes Visit Reasons: R Femoral Neck Fracture Inpatient Physical Therapy Discharge Summary Dates:10/02/2023 Dates of Service: 09/30/2023-10/02/2023 SUBJECTIVE: Pt happy to be going home today and likes his new walker. OBJECTIVE: Pt with minimal vocalizations utilizes gestures to express needs. cooperative and motivated to participate Pain:denies ROM: R LE: hip flexion 100 degrees, abduction: 15 degrees, extension 5 degrees, knee WNL,ankle DF to neutral STRENGTH: R LE: Hip 3-/5, Quad 3/5, Hamstring 3-/5 , DF 3/5 BED MOBILITY/TRANSFERS: Supine-sit Independent Sit-supine Independent Sit-stand SBA with cues for hand placement Stand-sit SBA with cues for hand placement Bed-Chair SBA with FWW Chair-bed SBA with FWW GAIT: CGA 300 feet with FWW intermittent cues to increase step height with shoes on, reciprocal pattern STAIRS: 10 steps with 2 rails CGA with cues for sequencing step to pattern BALANCE: Static sitting :Normal Dynamic sitting: Normal Static standing: Good with UE support Dynamic standing Fair with UE support SPECIAL TESTS: AMPAC 6 Click Raw score: 23 CMS: 11.20% disability ASSESSMENT: Pt has demonstrated progress with functional mobility with FWW and stairs. He demonstrates impulsivity and easily distracted during ambulation in unfamiliar setting . Pt with intermittent spastic movements LLE which impair his stand balance . He demonstrates improved trunk and postural control with BUE support on FWW. He will be discharged with his caregiver providing assistance as well as his brother Tan. They have purchased a gait belt to allow them to provide assistance as needed during ambulation when spastic movement related to his CP occur. GOALS ( Met / Not Met): Goals: 1. Supine-Sit independent ( Met) 2. Sit-Supine independent ( Met) 3. Sit-Stand SBA (MET) 4. Stand-Sit SBA (MET) 5. Bed-Chair SBA with FWW (MET) 6. Chair-Bed SBA with FWW (MET) 7. Gait SBA with FWW (NOT MET) CGA d/t spastic movement unpredictable 8. Stairs up/down CGA with railing (MET) 9. Independent with home exercise program ( NOT MET) supervision DISCHARGE PLAN/RECOMMENDATIONS: Home with services PT
--- NOTE | 2023-10-02 10:21 | CMDISCH_ITS ---
Date of service: 10/02/23 Time of Service: 10:21 LACE Index Scoring Tool Questions: Length of Stay (in days): 2 Was the patient admitted via the E.D.?: No Comorbidities: Cerebrovascular Disease (Seizure disorder) E.D. Visits: 0 Answers: Total Score: 3 Risk of Readmission: Low Risk Care Management Discharge Plan Reason for Hospitalization: Right Femoral Neck Fracture Discharge Plan: Jermaine is discharged back to the community long-term where he resides. He is transported via private vehicle with his caregiver Shey. [facility] services are ordered. Jermaine will follow up with community providers and Ortho in 4 weeks, as recommended. Patient/Family Education Needs: Review discharge instructions, limitations, medications and plan to follow up with community providers. Discuss ask me three. Services Needed at Discharge: Home Health Care Services ([facility]) SDOH Health Related Social Needs: No Data to Display
== END 2023-10-02 10:46 | disposition home health service (06) | DRG 482 ==
PROVIDERS: Admitting Provider Student in an Organized Health Care Education/Training Program; Visit Provider Student in an Organized Health Care Education/Training Program
PROC: 0QH634Z Insertion of Internal Fixation Device into Right Upper Femur, Percutaneous Approach (ICD-10-PCS; CPT 27235; principal; 2023-09-30 08:30)
DX: S72.034A Nondisplaced midcervical fracture of right femur, initial encounter for closed fracture (principal); G40.909 Epilepsy, unspecified, not intractable, without status epilepticus; G80.9 Cerebral palsy, unspecified; W10.8XXA Fall (on) (from) other stairs and steps, initial encounter
CPT/HCPCS: 27235; 36415; 80048; 85027; 97110; 97116; 97161; 97530; 99223; 73501; 84443; J0131; J0690; J1171; J2250; J2371

== ENCOUNTER 2023-11-05 13:35 | Outpatient (CLI) | payer MEDICARE, MEDICAID, SELFPAY ==
--- NOTE | 2023-11-05 13:30 | DI.RAD_ITS ---
Exam(s) XR HIP RT AP LAT ONLY EXAM: XR HIP RT AP LAT ONLY INDICATION: eval ORIF R FNF. COMPARISON: XA XR HIP RT IN OR from 09/30/2023 TECHNIQUE: 2D digital imaging was performed. Two views. FINDINGS: No change in position of the screws in the proximal right femur. No change in fracture alignment. DATA REPOSITORY: RADIATION DOSE DELIVERED:
== END 2023-11-05 13:36 | disposition home or self-care (01) ==
LOC: DIORS 13:40
PROVIDERS: Visit Provider Student in an Organized Health Care Education/Training Program
DX: S72.001D Fracture of unspecified part of neck of right femur, subsequent encounter for closed fracture with routine healing; X58.XXXD Exposure to other specified factors, subsequent encounter
CPT/HCPCS: 99024; 73502

== ENCOUNTER 2023-12-03 11:48 | Outpatient (CLI) | payer MEDICARE, MEDICAID, SELFPAY ==
--- NOTE | 2023-12-03 11:00 | DI.RAD_ITS ---
Exam(s) XR HIP RT AP LAT ONLY EXAM: XR HIP RT AP LAT ONLY INDICATION: S/P CANNULATED SCREW FIXATION. COMPARISON: CR XR HIP RT AP LAT ONLY from 11/05/2023 TECHNIQUE: 2D digital imaging was performed. Two views. FINDINGS: Three partially threaded screws are again noted through the right femoral neck. There has been tonie nued fracture healing. No change in alignment. DATA REPOSITORY: RADIATION DOSE DELIVERED:
== END 2023-12-03 11:49 | disposition home or self-care (01) ==
LOC: DIORS 11:48
PROVIDERS: Visit Provider Student in an Organized Health Care Education/Training Program
DX: S72.001D Fracture of unspecified part of neck of right femur, subsequent encounter for closed fracture with routine healing (principal); X58.XXXD Exposure to other specified factors, subsequent encounter
CPT/HCPCS: 99024; 73502

== ENCOUNTER 2024-06-02 10:31 | Outpatient (CLI) | payer MEDICARE, MEDICAID, SELFPAY ==
--- NOTE | 2024-06-02 10:15 | DI.RAD_ITS ---
Exam(s) XR HIP RT AP LAT ONLY EXAM: XR HIP RT AP LAT ONLY CLINICAL HISTORY: S/P IM FIXATION. TECHNIQUE: 2D digital imaging was performed. Two images were obtained. AP, lateral and oblique view s were obtained. COMPARISON: CR XR HIP RT AP LAT ONLY from 12/03/2023 FINDINGS: BONES: There are stable post operative changes present. There again seen 3 partially threaded screws through the right femoral neck. No new fracture or dislocation. JOINTS: The joint spaces are well maintained. SOFT TISSUE: Normal. IMPRESSION: Stable postoperative changes. No acute fracture or dislocation. DATA REPOSITORY: RADIATION DOSE DELIVERED:
== END 2024-06-02 10:32 | disposition home or self-care (01) ==
LOC: DIORS 10:32
PROVIDERS: Visit Provider Physician Assistant
DX: S72.034D Nondisplaced midcervical fracture of right femur, subsequent encounter for closed fracture with routine healing (principal); X58.XXXD Exposure to other specified factors, subsequent encounter
CPT/HCPCS: 99213; 73502